=== PATIENT | male | born 1955 | race Caucasian/White ===

== ENCOUNTER 2017-10-12 18:00 | Emergency (ER) | payer OTHER ==
[2017-10-12 18:54] LABS: Glucose, Urine (Dipstick) Negative (Negative); Ketone, Urine Negative (Negative); Protein, Urine (Dipstick) 100 mg/dL (Neg-Trace)
[2017-10-12 19:01] LABS: Bilirubin Unable to Interpret (Negative); Blood, Urine Large (Negative); Nitrite Unable to Interpret (Negative)
[2017-10-12 19:03] LABS: #Eosinphils 0.5 thou/uL (0.0-0.7); #Lymphocytes 2.9 thou/uL (1.20-3.40); #Monocytes 0.8 thou/uL (0.11-0.59); #Neutrophils 4.7 thou/uL (1.40-6.50); %Basophils 0.4 % (0.0-1.0); %Eosinophils 5.5 % (0.0-10.0); %Lymphocytes 32.2 % (21.0-51.0); %Monocytes 9.3 % (0.0-10.0); Hematocrit 45.9 % (42.0-52.0); Mean Platelet Volume 6.7 fL (7.4-10.4); Red Blood Cell (RBC) Count 4.61 mill/uL (4.70-6.10); White Blood Cell (WBC) Count 8.9 thou/uL (4.8-10.8)
[2017-10-12 19:04] LABS: RBC/HPF GREATER THAN 50-TNTC HPF (0-3)
[2017-10-12 19:05] LABS: Bacteria/HPF None Seen HPF (None Seen); Hyaline Casts/LPF NONE SEEN LPF (0-3 Hyaline); Squamous Epithelial None Seen HPF (0-3)
[2017-10-12 19:27] LABS: ALT (SGPT) 21 U/L (8-55); AST (SGOT) 22 U/L (5-34); Alkaline Phosphatase 44 U/L (40-150); Anion Gap 9 mmol/L (10-20); BUN (Urea Nitrogen) 14 mg/dL (8.4-25.7); Calc. Creatinine Clearance 0 mL/min (70-130); Calcium 9.5 mg/dL (7.8-10.44); Carbon Dioxide 29 mmol/L (22-29); Chloride 103 mmol/L (98-107); Estimated GFR-MDRD 58; Globulin 3.4 g/dL (2.4-3.5); Protein, Total 7.7 g/dL (6.0-8.3)
== END 2017-10-12 21:51 | disposition home or self-care (01) ==
LOC: ERS 18:00
DX: N39.0 Urinary tract infection, site not specified (principal); E78.5 Hyperlipidemia, unspecified; I25.10 Atherosclerotic heart disease of native coronary artery without angina pectoris; I10 Essential (primary) hypertension; F41.9 Anxiety disorder, unspecified; F32.9 Major depressive disorder, single episode, unspecified; Z79.82 Long term (current) use of aspirin; Z79.899 Other long term (current) drug therapy
CPT/HCPCS: 36415; 80053; 81003; 81015; 85025; 99283

== ENCOUNTER 2017-10-23 13:35 | Emergency (ER) | payer OTHER ==
[2017-10-23] MEDS ORDERED: Acetaminophen 500 MG TAB ONE (15:23)
== END 2017-10-23 15:21 | disposition home or self-care (01) ==
LOC: ERS 13:35
DX: J11.1 Influenza due to unidentified influenza virus with other respiratory manifestations (principal); I25.10 Atherosclerotic heart disease of native coronary artery without angina pectoris; I10 Essential (primary) hypertension; E78.5 Hyperlipidemia, unspecified; F41.9 Anxiety disorder, unspecified; F32.9 Major depressive disorder, single episode, unspecified; Z79.82 Long term (current) use of aspirin; Z79.899 Other long term (current) drug therapy
CPT/HCPCS: 99283

== ENCOUNTER 2018-05-20 09:18 | Observation (INO) | payer BC ==
[2018-05-20 10:00] LABS: #Basophils 0.1 thou/uL (0.0-0.2); #Eosinphils 0.3 thou/uL (0.0-0.7); #Lymphocytes 1.6 thou/uL (1.20-3.40); #Monocytes 0.5 thou/uL (0.11-0.59); #Neutrophils 4.3 thou/uL (1.40-6.50); %Basophils 0.7 % (0.0-1.0); %Eosinophils 4.6 % (0.0-10.0); %Lymphocytes 24.2 % (21.0-51.0); %Monocytes 7.2 % (0.0-10.0); %Neutrophils 63.3 % (42.0-75.0); Hemoglobin 16.3 g/dL (14.0-18.0); Mean Corpuscular HGB CONC 34.6 g/dL (32.0-36.0); Mean Corpuscular Hemoglobin 32.9 pg (27.0-31.0); Mean Corpuscular Volume 95.1 fL (78.0-98.0); Mean Platelet Volume 7.1 fL (7.4-10.4); Platelet Count 228 thou/uL (130-400); RBC Distribution Width 11.8 % (11.5-14.5); Red Blood Cell (RBC) Count 4.95 mill/uL (4.70-6.10); White Blood Cell (WBC) Count 6.8 thou/uL (4.8-10.8)
--- NOTE | 2018-05-20 10:23 | RAD ---
CHEST 1 VIEW: HISTORY: Chest pain and shortness of breath. COMPARISON: Chest radiograph 06/19/17. FINDINGS: Heart size is enlarged. Tendon suturing is present of the right humeral head. No acute osseous abno rmality. IMPRESSION: No acute intrathoracic abnormality. POS: [facility]
[2018-05-20 10:27] LABS: ALT (SGPT) 20 U/L (8-55); AST (SGOT) 18 U/L (5-34); Albumin 4.2 g/dL (3.5-5.0); Alkaline Phosphatase 57 U/L (40-150); Anion Gap 13 mmol/L (10-20); BUN (Urea Nitrogen) 14 mg/dL (8.4-25.7); Bilirubin, Total 0.7 mg/dL (0.2-1.2); CK (CPK) 72 U/L (30-200); Calc. Creatinine Clearance 0 mL/min (70-130); Calcium 8.8 mg/dL (7.8-10.44); Carbon Dioxide 25 mmol/L (22-29); Chloride 105 mmol/L (98-107); Estimated GFR-MDRD 59; Globulin 2.9 g/dL (2.4-3.5); Glucose 166 mg/dL (70-105); Lipase 356 U/L (8-78); Potassium 4.5 mmol/L (3.5-5.1); Protein, Total 7.1 g/dL (6.0-8.3); Sodium 138 mmol/L (136-145)
[2018-05-20 10:31] LABS: CKMB 1.1 ng/mL (0-6.6); Troponin I Less than 0.010 ng/mL (< 0.028)
[2018-05-20] MEDS ORDERED: Nitroglycerin 50 MG/250 ML BOT 0 ML ONE ×2 (11:16→11:17)
[2018-05-20] MEDS ORDERED: Nitroglycerin 2% Ointment 1 INCH/1 GM Packet ONE (11:19)
--- NOTE | 2018-05-20 11:33 | CT ---
CTA OF THE CHEST AND ABDOMEN UTILIZING AORTIC DISSECTION PROTOCOL AND 3D REFORMATTED IMAGING: INDICATION: History of chest pain. FINDINGS: No definite acute aortic stenosis, occlusion, or aneurysmal formation is seen involving the thoracic or abdominal aorta. There are mild scattered vascular calcifications involving the aorta. There is postsurgical change of a prior CABG. The splenic artery and common hepatic arteries have separate origins from the proximal aorta which is a normal variant. The left gastric artery appears to have its origin from the splenic artery. The SMA is widely patent. There is a small duplicated right renal artery. There is a single left renal artery. The renal arteries appear patent. The FORTINO is patent. There is a circumaortic left renal ve in. No confluent airspace opacity, pleural effusion, or pneumothorax is evident. There is mild scattered emphysema. No enlarged lymph nodes are evident. There is fatty infiltration of the liver. The adrenal glands, pancreas, and spleen are normal appearing. There is some cortical irregularity involving the left kidney which may reflect sequelae of prior inf ection or trauma. There is a normal retrocecal appendix. The bladder is moderately prominent. There is some wall thic kening involving the left superolateral aspect of the bladder dome which is nonspecific. This is bes t seen on image 180 of series 2. No definite acute osseous abnormality is evident. There is scattered degenerative and osteoarthritic change. IMPRESSION: 1. No acute aortic stenosis, occlusion, or aneurysmal formation demonstrated. 2. Fatty infiltration of the liver. 3. Cortical irregularity of left kidney may reflect sequela of prior trauma or infection. 4. Focal area of wall thickening involving the left superolateral aspect of the bladder dome. This can be seen with focal infectious, inflammatory or malignant etiologies of the bladder. Recommend co rrelation. The bladder does appear to be moderately dilated. Would recommend correlation with clini lacey exam. The patient may be experiencing bladder outlet obstruction. Followup urology consultation may be helpful to exclude the presence of a bladder lesion. POS: [facility]
[2018-05-20 13:04] LABS: Bilirubin Negative (Negative); Blood, Urine Negative (Negative); Clarity CLEAR (Clear); Glucose, Urine (Dipstick) Negative (Negative); Leukocyte Negative (Negative); Nitrite Negative (Negative); Protein, Urine (Dipstick) Negative (Neg-Trace); Specific Gravity, Urine 1.027 (1.002-1.036); Urobilinogen 0.2 mg/dL (0.2-1.0); pH, Urine 7.5 (5.0-9.0)
[2018-05-20] MEDS ORDERED: Ondansetron ODT 4 MG TAB SL PRN (13:13)
[2018-05-20] MEDS ORDERED: Ondansetron HCl/PF 4 MG/2 ML Vial IVP PRN ×2 (13:13→17:01)
[2018-05-20 13:33] VITALS: BMI 28.4
[2018-05-20] MEDS: Sodium Chloride 0.9% 1,000 ML IV SCH ×2 (13:46→22:09)
[2018-05-20 14:38] LABS: Troponin I Less than 0.010 ng/mL (< 0.028)
[2018-05-20] MEDS ORDERED: ISOVUE-370 76%-LOCM 1 ML ONE (14:39)
[2018-05-20] MEDS ORDERED: Clopidogrel Bisulfate 300 MG TAB PO SCH (16:15)
[2018-05-20] MEDS ORDERED: Senokot 8.6 MG TAB PO PRN (17:01)
[2018-05-20] MEDS ORDERED: Ondansetron ODT 4 MG TAB PO PRN (17:01)
[2018-05-20] MEDS ORDERED: Mag-Al 1200 mg/1200 mg/30 ML UDCUP PO PRN (17:01)
[2018-05-20] MEDS ORDERED: Nitroglycerin 0.4 MG TAB (25 Tab Bottle) PO PRN (17:01)
[2018-05-20] MEDS ORDERED: Calcium Carbonate 500 MG ChewTAB PO PRN (17:01)
[2018-05-20 17:04] LABS: Troponin I Less than 0.010 ng/mL (< 0.028)
[2018-05-20] MEDS: Acetaminophen 325 MG TAB PO PRN ×2 (17:43→22:05)
--- NOTE | 2018-05-20 18:34 | HP ---
PRIMARY CARE PHYSICIAN: Juan Boogie D.O. PRIMARY RECOATER: Alex Kyle M.D. CHIEF COMPLAINT: Chest discomfort. HISTORY OF PRESENT ILLNESS: Patient is a 62-year-old white male with coronary artery disease, status post CABG and stent placement, who presented to the emergency room with chest discomfort. Two drug-eluting stents were placed on , by Dr. Kyle. He was advised to continue dual antiplatelet therapy. However, over the last 3 months, patient has not taken any medications including aspirin. Over the last 2-3 days, the patient has on and off chest discomfort associated with shortness of breath. Chest discomfort is substernal in nature and radiating to his back and left arm. He feels like someone is sitting on his chest. He had mild palpitations without any syncope, lightheadedness or diaphoresis. He denies recent immobilization or travel. No heartburn, dyspepsia reported. In the emergency room, EKG showed sinus rhythm without significant ST-T wave changes. His chest x-ray was negative for infiltrate. A CT dissection protocol was negative, except for some focal area of wall thickening involving the bladder. He received aspirin and nitropatch in the emergency room. PAST MEDICAL HISTORY: 1. Coronary artery disease, status post CABG in 2005. 2. Drug-eluting stent placement in 05/2017. 3. Hyperlipidemia. 4. Depression 5. Medical noncompliance. PAST SURGICAL HISTORY: 1. Coronary artery bypass grafting. 2. Lumbar laminectomy. 3. Achilles tendon rupture repair. 4. Right triceps tendon repair. ALLERGIES: The patient is allergic to HYDROCODONE. FAMILY HISTORY: Negative for heart disease in his family. SOCIAL HISTORY: He currently lives at home with his girlfriend. No alcohol, tobacco or drug use. CURRENT HOME MEDICATIONS: The patient does not take any home medications. REVIEW OF SYSTEMS: The following complete review of systems was negative, unless otherwise mentioned in the HPI or below: Constitutional: Weight loss or gain, ability to conduct usual activities. Skin: Rash, itching. Eyes: Double vision, pain. ENT/Mouth: Nose bleeding, neck stiffness, pain, tenderness. Cardiovascular: Palpitations, dyspnea on exertion, orthopnea. Respiratory: Shortness of breath, wheezing, cough, hemoptysis, fever or night sweats. Gastrointestinal: Poor appetite, abdominal pain, heartburn, nausea, vomiting, constipation, or diarrhea. Genitourinary: Urgency, frequency, dysuria, nocturia. Musculoskeletal: Pain, swelling. Neurologic/Psychiatric: Anxiety, depression. Allergy/Immunologic: Skin rash, bleeding tendency. PHYSICAL EXAMINATION: VITAL SIGNS: In the emergency room showed temperature 97.6, respirations 16, pulse rate of 93, blood pressure of 181/89 with O2 saturation 98% on room air. GENERAL: A 62-year-old male in no apparent distress. Denies any chest discomfort at this time. HEENT: Head atraumatic, normocephalic. Sclerae are anicteric. Moist mucous membrane, no oral lesion. NECK: Supple, no JVD appreciated. No carotid bruit. LUNGS: Clear to auscultation bilaterally, no wheezing, rales or rhonchi. HEART: S1, S2 present. Regular rate and rhythm. Healed midline scar from previous CABG. No rubs or gallops appreciated. ABDOMEN: Soft, nontender, bowel sounds present. EXTREMITIES: No edema or calf tenderness. NEUROLOGIC: Grossly nonfocal, moves all four extremities. PSYCHIATRY: Alert, awake, oriented x3. SKIN: Warm and dry. LYMPH NODES: No palpable lymph nodes in the neck. PERIPHERAL VASCULAR: Radial pulses palpable bilaterally. MUSCULOSKELETAL: No joint swelling or tenderness. LABORATORY AND X-RAY FINDINGS: Lipase was 356. Troponin negative. BNP 55.1. CBC showed WBC 6.8 with hemoglobin 16.3, hematocrit 47.1. Chemistries showed sodium 138, potassium 4.5, chloride 105, bicarbonate 25, BUN 14, creatinine 1.24. Chest x-ray by my review as discussed above. EKG by my review as discussed above. IMPRESSION: 1. Chest discomfort. 2. Coronary artery disease, status post coronary artery bypass graft with stent placement. Please note that patient does not take any medications at home. 3. Hypertension. 4. Hyperlipidemia. 5. Medication noncompliance. 6. Depression. 7. Chronic kidney disease stage 3. 8. Bladder wall thickening on the CT dissection protocol. PLAN: The patient will be monitored on the telemetry unit. I discussed the case with Dr. Alex Kyle over the phone. Dr. Kyle recommended 600 mg Plavix. We will start him on low dose aspirin and 75 mg Plavix tomorrow. We will hold beta linda due to sinus bradycardia with heart rate in 40s. We will add low dose ARLIN inhibitor. Resume statins. Continue telemetry monitoring. Serial troponins. Outpatient followup for bladder wall thickening. Plan of care was discussed with the patient in detail. He stated understanding. MALIKAD
[2018-05-20] MEDS: Rosuvastatin 10 MG TAB PO SCH (20:16)
[2018-05-21] MEDS: Clopidogrel Bisulfate 75 MG TAB PO SCH (08:59)
[2018-05-21] MEDS: Aspirin 81 mg Enteric Coated Tablet PO SCH (08:59)
[2018-05-21] MEDS ORDERED: Lisinopril 2.5 MG TAB PO SCH (09:00)
[2018-05-21] MEDS: Sodium Chloride 0.9% 1,000 ML IV SCH ×2 (10:19→20:43)
[2018-05-21 16:26] LABS: Hemoglobin 16.4 g/dL (14.0-18.0)
[2018-05-21] MEDS: Acetaminophen 325 MG TAB PO PRN (18:29)
[2018-05-21] MEDS ORDERED: hydrALAZINE 20 MG/ML VIAL SLOW IVP PRN (19:30)
--- NOTE | 2018-05-21 19:38 | PDOC.PN ---
- Subjective Encounter Start Date: 05/21/18 Encounter Start Time: 09:30 Patient seen and examined for CP. Gross hematuria + with some suprapubic cramping. No other complaints. No overnight events - Objective Resuscitation Status: Resuscitation Status FULL:Full Resuscitation MAR Reviewed: Yes Vital Signs & Weight: Vital Signs (12 hours) Temp Pulse Resp BP BP Pulse Ox 05/21/18 15:20 98.9 F 54 L 16 150/83 H 96 05/21/18 11:46 98.7 F 56 L 20 151/75 H 97 05/21/18 08:00 97.8 F 49 L 12 05/21/18 07:49 97.8 F 52 L 20 172/93 H 96 Weight Weight 176 lb I&O: 05/20/18 05/21/18 05/22/18 06:59 06:59 06:59 Intake Total 3050 1814 Output Total 550 1250 Balance 2500 564 Result Diagrams: 05/21/18 16:17 05/20/18 09:50 EKG Reviewed by me: Yes (Tele SR) Phys Exam - Physical Examination Constitutional: NAD Neck: no JVD Respiratory: no wheezing, no rales, no rhonchi, clear to auscultation bilateral Cardiovascular: RRR, no rub no heaves/pulsations Gastrointestinal: soft, non-tender, no distention, positive bowel sounds Musculoskeletal: no edema, pulses present Neurological: non-focal, normal sensation, moves all 4 limbs Psychiatric: normal affect, A&O x 3 Dx/Plan - Plan DVT proph w/SCDs IMPRESSION: 1. Chest discomfort with h/o CAD, status post CABG & stent placement. 2. Gross hematuria - new problem 3. Hypertension. 4. Hyperlipidemia. 5. Medication noncompliance. 6. Depression. 7. Chronic kidney disease stage 3. 8. Bladder wall thickening on the CT dissection protocol. PLAN: Hematuria probably due to loading dose of Plavix with Aspirin. Please note that patient was not taking any antiplatelet agent at home. We will monitor hemoglobin closely. Will start him on IV fluids. Will increase lisinopril dose. Continue aspirin and Plavix. Repeat Hb later today and in AM. Was extensively count to be compliant with all of his medications. He was advised to follow Urology as outpatient for bladder wall thickening will continue statins. Serial urine collection. Review of Systems - Review of Systems Respiratory: negative: Cough, Dry, Shortness of Breath, Hemoptysis, SOB with Excertion, Pleuritic Pain, Sputum, Wheezing Cardiovascular: negative: chest pain, palpitations, orthopnea, paroxysmal nocturnal dyspnea, edema, light headedness, other - Medications/Allergies Allergies/Adverse Reactions: Allergies Allergy/AdvReac Type Severity Reaction Status Date / Time hydrocodone Allergy Verified 06/07/17 23:58 Medications: Current Medications Acetaminophen (Tylenol) 650 mg PO Q4H PRN PRN Reason: Headache/Fever or Pain Last Admin: 05/21/18 18:29 Dose: 650 mg Al Hydroxide/Mg Hydroxide (Maalox) 30 ml PO Q6H PRN PRN Reason: Heartburn or Indigestion Amlodipine Besylate (Norvasc) 5 mg PO ONE [facility] Aspirin (Ecotrin) 81 mg PO DAILY [facility] Last Admin: 05/21/18 08:59 Dose: 81 mg Calcium Carbonate (Tums) 1,000 mg PO Q4H PRN PRN Reason: Heartburn or Indigestion Clopidogrel Bisulfate (Plavix) 75 mg PO DAILY [facility] Last Admin: 05/21/18 08:59 Dose: 75 mg Hydralazine HCl (Apresoline) 10 mg SLOW IVP Q4H PRN PRN Reason: SBP Greater Than 180 Sodium Chloride (Normal Saline 0.9%) 1,000 mls @ 100 mls/hr IV .Q10H [facility] Last Admin: 05/21/18 10:19 Dose: 1,000 mls Lisinopril (Zestril) 5 mg PO BID [facility] Nitroglycerin (Nitrostat) 0.4 mg PO Q5MIN PRN PRN Reason: Chest Pain Ondansetron HCl (Zofran Odt) 4 mg PO Q6H PRN PRN Reason: Nausea/Vomiting Ondansetron HCl (Zofran) 4 mg IVP Q6H PRN PRN Reason: Nausea/Vomiting Rosuvastatin Calcium (Crestor) 10 mg PO HS [facility] Last Admin: 05/20/18 20:16 Dose: 10 mg Senna (Senokot) 2 tab PO HSPRN PRN PRN Reason: Constipation
[2018-05-21] MEDS ORDERED: Amlodipine 5 MG TAB PO SCH (19:45)
[2018-05-21] MEDS: Rosuvastatin 10 MG TAB PO SCH (20:42)
[2018-05-21] MEDS: Lisinopril 5 MG TAB PO SCH (20:42)
[2018-05-21] MEDS ORDERED: Ibuprofen 200 MG TAB PO SCH (23:15)
[2018-05-22 04:59] LABS: Hemoglobin 15.2 g/dL (14.0-18.0)
[2018-05-22] MEDS: Sodium Chloride 0.9% 1,000 ML IV SCH (07:08)
[2018-05-22] MEDS ORDERED: hydrOXYzine 10 MG/5 ML UDCUP PO PRN (08:49)
[2018-05-22] MEDS: Aspirin 81 mg Enteric Coated Tablet PO SCH (08:51)
[2018-05-22] MEDS: Lisinopril 5 MG TAB PO SCH (08:51)
[2018-05-22] MEDS: Clopidogrel Bisulfate 75 MG TAB PO SCH (08:51)
[2018-05-22 16:08] VITALS: BP 126/72; TEMP 98.1
--- NOTE | 2018-05-22 16:48 | PDOC.PN ---
- Subjective Encounter Start Date: 05/22/18 Encounter Start Time: 16:47 Subjective: no Chest pain/SOB. -: feels much better -: no more blood in urine - Objective Resuscitation Status: Resuscitation Status FULL:Full Resuscitation MAR Reviewed: Yes Vital Signs & Weight: Vital Signs (12 hours) Temp Pulse Resp BP BP Pulse Ox 05/22/18 16:00 98.1 F 53 L 14 126/72 97 05/22/18 11:29 97.9 F 52 L 16 141/68 H 92 L 05/22/18 09:53 122/59 L 05/22/18 08:00 98.0 F 50 L 20 05/22/18 07:51 98.0 F 50 L 20 119/64 95 Weight Weight 176 lb I&O: 05/21/18 05/22/18 05/23/18 06:59 06:59 06:59 Intake Total 3050 3254 Output Total 550 2500 550 Balance 2500 754 -550 Result Diagrams: 05/22/18 04:20 05/20/18 09:50 Additional Labs: Laboratory Tests 05/20/18 05/20/18 05/20/18 09:50 13:59 16:34 Troponin I Less than 0.010 Less than 0.010 Less than 0.010 labs reviewed Phys Exam - Physical Examination Constitutional: NAD HEENT: PERRLA, moist MMs, sclera anicteric, oral pharynx no lesions Neck: no nodes, no JVD, supple, full ROM Respiratory: no wheezing, no rales, no rhonchi, clear to auscultation bilateral Cardiovascular: RRR, no significant murmur, no rub Gastrointestinal: soft, non-tender, no distention, positive bowel sounds Musculoskeletal: no edema, pulses present Neurological: non-focal, normal sensation, moves all 4 limbs Psychiatric: normal affect, A&O x 3 Skin: no rash Dx/Plan (1) Hematuria Code(s): R31.9 - HEMATURIA, UNSPECIFIED Status: Acute (2) Chest pain Code(s): R07.9 - CHEST PAIN, UNSPECIFIED Status: Acute (3) CAD (coronary artery disease) Code(s): I25.10 - ATHSCL HEART DISEASE OF [place] CORONARY ARTERY W/O ANG PCTRS Status: Acute Qualifiers: Coronary Disease-Associated Artery/Lesion type: bypass graft [place] vs. transplanted heart: [place] heart Associated angina: with stable angina Qualified Code(s): I25.708 - Atherosclerosis of coronary artery bypass graft(s) , unspecified, with other forms of angina pectoris (4) Depression Code(s): F32.9 - MAJOR DEPRESSIVE DISORDER, SINGLE EPISODE, UNSPECIFIED Status : Chronic Qualifiers: Depression Type: unspecified (5) HLD (hyperlipidemia) Code(s): E78.5 - HYPERLIPIDEMIA, UNSPECIFIED Status: Chronic Qualifiers: Hyperlipidemia type: unspecified (6) HTN (hypertension) Code(s): I10 - ESSENTIAL (PRIMARY) HYPERTENSION Status: Chronic Qualifiers: Hypertension type: essential hypertension - Plan DC IVF.cont ASA,plavix and ARLIN-I -: HR on lower side so holding off on BB -: will check ECHO to assess cardiac Function as pt was off of meds -: if low, add diurtics,BB & OP cardiology referral. -: If NL, DC home w OP f/u. * . Review of Systems - Review of Systems Constitutional: negative: fever, chills, sweats, weakness, malaise, other ENT: negative: Ear Pain, Ear Discharge, Nose Pain, Nose Discharge, Nose Congestion, Mouth Pain, Mouth Swelling, Throat Pain, Throat Swelling, Other Respiratory: negative: Cough, Dry, Shortness of Breath, Hemoptysis, SOB with Excertion, Pleuritic Pain, Sputum, Wheezing Cardiovascular: negative: chest pain, palpitations, orthopnea, paroxysmal nocturnal dyspnea, edema, light headedness, other Gastrointestinal: negative: Nausea, Vomiting, Abdominal Pain, Diarrhea, Constipation, Melena, Hematochezia, Other Genitourinary: negative: Dysuria, Frequency, Incontinence, Hematuria, Retention , Other Musculoskeletal: negative: Neck Pain, Shoulder Pain, Arm Pain, Back Pain, Hand Pain, Leg Pain, Foot Pain, Other Neurological: negative: Weakness, Numbness, Incoordination, Change in Speech, Confusion, Seizures, Other - Medications/Allergies Allergies/Adverse Reactions: Allergies Allergy/AdvReac Type Severity Reaction Status Date / Time hydrocodone Allergy Verified 06/07/17 23:58 Medications: Current Medications Acetaminophen (Tylenol) 650 mg PO Q4H PRN PRN Reason: Headache/Fever or Pain Last Admin: 05/21/18 18:29 Dose: 650 mg Al Hydroxide/Mg Hydroxide (Maalox) 30 ml PO Q6H PRN PRN Reason: Heartburn or Indigestion Aspirin (Ecotrin) 81 mg PO DAILY [facility] Last Admin: 05/22/18 08:51 Dose: 81 mg Calcium Carbonate (Tums) 1,000 mg PO Q4H PRN PRN Reason: Heartburn or Indigestion Clopidogrel Bisulfate (Plavix) 75 mg PO DAILY [facility] Last Admin: 05/22/18 08:51 Dose: 75 mg Hydralazine HCl (Apresoline) 10 mg SLOW IVP Q4H PRN PRN Reason: SBP Greater Than 180 Hydroxyzine HCl (Atarax Syrup 10 Mg/5ml) 50 mg PO QIDPRN PRN PRN Reason: Itching Lisinopril (Zestril) 5 mg PO BID [facility] Last Admin: 05/22/18 08:51 Dose: 5 mg Nitroglycerin (Nitrostat) 0.4 mg PO Q5MIN PRN PRN Reason: Chest Pain Ondansetron HCl (Zofran Odt) 4 mg PO Q6H PRN PRN Reason: Nausea/Vomiting Ondansetron HCl (Zofran) 4 mg IVP Q6H PRN PRN Reason: Nausea/Vomiting Rosuvastatin Calcium (Crestor) 10 mg PO HS [facility] Last Admin: 05/21/18 20:42 Dose: 10 mg Senna (Senokot) 2 tab PO HSPRN PRN PRN Reason: Constipation
--- NOTE | 2018-05-23 13:22 | DIS ---
DATE OF ADMISSION: 05/20/2018 DATE OF DISCHARGE: 05/22/2018 CONDITION AT THE TIME OF DISCHARGE: Stable and improved. PRIMARY CARE PHYSICIAN: Dr. Juan Boogie. PRIMARY ALUMINUM WELDER: Dr. Alex Kyle. DISCHARGE MEDICATIONS: Aspirin 81 mg daily, Plavix 75 mg daily, lisinopril 5 mg p.o. b.i.d., subling ual nitroglycerin 0.4 mg p.o. every minutes p.r.n. chest pain, pravastatin 20 mg at bedtime. DISCHARGE DIAGNOSES: 1. Chest pain, acute coronary syndrome ruled out, likely noncardiac. 2. Hematuria secondary to antiplatelet therapy, resolved. 3. Coronary artery disease. 4. Depression. 5. Hypertension. 6. Dyslipidemia. PROCEDURES DONE IN THE HOSPITAL: CT scan with aortic dissection protocol, which is negative for same . There is no aortic stenosis, occlusion, or aneurysm. Fatty infiltration of the liver is seen and focal area of wall thickening involving the left superolateral aspect of the bladder dome was seen. HOSPITAL COURSE: Mr. Bales is a 62-year-old male with known history of coronary artery disease s tatus post CABG and stent placement, who presented to the emergency room with complaints of chest dis comfort. Two drug-eluting stents were placed on 06/11/[address] Kyle and he was discharged on dual antiplatelet therapy. However, over the last 3 months, the patient has not taken any medication s including aspirin. He presented with 2-3 days complaints of chest pain. EKG showed normal sinus r hythm without any significant ST and T-wave changes. Chest x-ray was negative for infiltrate. A CT dissection protocol was negative except for some focal area of wall thickening involving the bladder. He was admitted under observation status for further evaluation. Admitting physician, Dr. Aravind liang scussed the case with Dr. Kyle who recommended loading dose of Plavix and then 75 mg Plavix with aspirin daily. This was started. Beta blockers were held due to bradycardia with heart rate in the 40s. Low dose ARLIN inhibitor were restarted as well. Stains were resumed as well. Serial cardiac enzymes were trended and were negative. The patient had evidence of hematuria as soon as he was started with a loading dose of Plavix and aspirin. He was started on IV fluids and monito red. H&H was serially done and was stable. His hematuria resolved overnight and he was asymptomatic . Because of him being off of his medications, an echocardiogram was done, but the results are pendi ng at this time. He is instructed to follow up with Dr. Kyle as an outpatient for the results of the echocardiogram and be compliant with his medications. He is instructed to follow up with a [facility] physician as well. The patient reported that now he has insurance and will be able to afford the medications and his barbara ointments. Once again medication compliance was emphasized. He was seen and examined prior to discharge. Please see hospitalist progress note from the date of d ischarge for further detail including [id number] interview.
--- NOTE | 2018-05-25 11:55 | EKG ---
Test Reason : ER Blood Pressure : / mmHG Vent. Rate : 067 BPM Atrial Rate : 067 BPM P-R Int : 186 ms QRS Dur : 088 ms QT Int : 428 ms P-R-T Axes : 078 063 099 degrees QTc Int : 452 ms Normal sinus rhythm Possible Left atrial enlargement Borderline ECG Confirmed by PEDRO BARNHART ([id number]), art editor SIMRAN RAYGOZA ([id number]) on 05/25/2018 11:55:41 AM Referred By: Confirmed By:PEDRO BARNHART
== END 2018-05-22 18:11 | disposition home or self-care (01) ==
LOC: ERS 09:18 → 2SW 11:30
PROVIDERS: ADMIT Internal Medicine; ATTEND Internal Medicine
DX: R07.89 Other chest pain (principal); I25.10 Atherosclerotic heart disease of native coronary artery without angina pectoris; F32.9 Major depressive disorder, single episode, unspecified; E78.5 Hyperlipidemia, unspecified; R31.0 Gross hematuria; I12.9 Hypertensive chronic kidney disease with stage 1 through stage 4 chronic kidney disease, or unspecified chronic kidney disease; N18.3 Chronic kidney disease, stage 3 (moderate); Z91.19 Patient's noncompliance with other medical treatment and regimen; Z88.8 Allergy status to other drugs, medicaments and biological substances
CPT/HCPCS: 36415; 71045; 71275; 80053; 81003; 82550; 82553; 83690; 83880; 84484; 85014; 85018; 85025; 93005; 93306; 96360; 96361; G0378

== ENCOUNTER 2019-03-18 13:37 | Outpatient (CLI) | payer BC ==
--- NOTE | 2019-03-19 15:53 | ULT ---
LOWER EXTREMITY ARTERIAL EVALUATION USING DOPPLER WAVEFORM ANALYSIS AND SEGMENTAL LIMB PRESSURES 03/18/19 Examination of the legs reveal normal Doppler waveforms at rest in both legs with an ankle-arm index of about 1.2 bilaterally. Toe-brachial index is also normal. This study is a normal resting arterial study and would not be consistent with any significant vascular claudication.
== END 2019-03-18 13:38 | disposition home or self-care (01) ==
LOC: ULT 13:37
PROVIDERS: ATTEND Family Medicine
DX: G25.81 Restless legs syndrome (principal); G47.62 Sleep related leg cramps
CPT/HCPCS: 93922

== ENCOUNTER 2019-08-15 08:24 | Outpatient (CLI) | payer BC ==
--- NOTE | 2019-08-15 11:24 | CT ---
CT ABDOMEN AND PELVIS WITH IV CONTRAST: DATE: 08/15/2019. PROVIDED CLINICAL HISTORY: Gastroenteritis. FINDINGS: The visualized lung bases are free of significant opacity. The liver, spleen, pancreas, kidneys, and adrenal glands demonstrate an unremarkable CT appearance wi th the exception of foci of renal parenchymal volume loss on the left likely reflecting sequelae of p rior insult. There is no bowel dilatation, inflammatory fat stranding, free fluid, or lymph node enlargement appar ent. The appendix appears normal. Scattered atherosclerotic vascular calcifications seen. The osseous structures demonstrate no concerning lytic or blastic lesions. Penile urethral stent mat erial is demonstrated. IMPRESSION: No evidence for an acute process. POS: [facility]
== END 2019-08-15 08:25 | disposition home or self-care (01) ==
LOC: CT 08:24
PROVIDERS: ATTEND Physician Assistant
DX: A09 Infectious gastroenteritis and colitis, unspecified (principal); R10.824 Left lower quadrant rebound abdominal tenderness
CPT/HCPCS: 74177; 82565

== ENCOUNTER 2020-01-01 19:20 | Emergency (ER) | payer BC ==
[2020-01-01] MEDS ORDERED: Aspirin Chewable 81 MG TAB ONE (20:04)
[2020-01-01] MEDS ORDERED: Nitroglycerin 2% Ointment 1 INCH/1 GM Packet ONE (20:04)
[2020-01-01 20:05] LABS: #Basophils 0.1 thou/uL (0.0-0.2); #Eosinphils 0.3 thou/uL (0.0-0.7); #Lymphocytes 3.2 thou/uL (1.20-3.40); #Monocytes 0.9 thou/uL (0.11-0.59); %Basophils 0.8 % (0.0-1.0); %Eosinophils 3.6 % (0.0-10.0); %Lymphocytes 37.6 % (21.0-51.0); %Neutrophils 47.1 % (42.0-75.0); Hemoglobin 17.5 g/dL (14.0-18.0); Mean Corpuscular HGB CONC 34.6 g/dL (32.0-36.0); Mean Corpuscular Hemoglobin 33.1 pg (27.0-31.0); Mean Corpuscular Volume 95.7 fL (78.0-98.0); Mean Platelet Volume 7.4 fL (7.4-10.4); Platelet Count 266 thou/uL (130-400); RBC Distribution Width 11.7 % (11.5-14.5); Red Blood Cell (RBC) Count 5.28 mill/uL (4.70-6.10); White Blood Cell (WBC) Count 8.6 thou/uL (4.8-10.8)
[2020-01-01] MEDS ORDERED: Morphine 4 MG/ML VIAL ONE (20:25)
[2020-01-01 20:34] LABS: ALT (SGPT) 22 U/L (8-55); AST (SGOT) 18 U/L (5-34); Albumin 4.9 g/dL (3.4-4.8); Alkaline Phosphatase 50 U/L (40-110); BUN (Urea Nitrogen) 19 mg/dL (8.4-25.7); Bilirubin, Total 0.9 mg/dL (0.2-1.2); Calc. Creatinine Clearance 0 mL/min (70-130); Calcium 10.1 mg/dL (7.8-10.44); Carbon Dioxide 30 mmol/L (23-31); Estimated GFR-MDRD 49; Globulin 3.4 g/dL (2.4-3.5); Glucose 74 mg/dL (80-115); Lipase 39 U/L (8-78); Protein, Total 8.3 g/dL (5.8-8.1)
--- NOTE | 2020-01-01 21:09 | RAD ---
EXAM: CHEST ONE VIEW: 01/01/20 HISTORY: Chest pain. Shortness of breath. COMPARISON: 05/20/18. FINDINGS/IMPRESSION: Heart size is within normal limits. The lungs are clear. No confluent pneumonia, overt edema, or pleu ral effusion. POS: [facility]
[2020-01-01 21:29] LABS: Anion Gap 16 mmol/L (10-20); Chloride 101 mmol/L (98-107); Potassium 4.3 mmol/L (3.5-5.1); Sodium 138 mmol/L (136-145)
--- NOTE | 2020-01-03 13:44 | EKG ---
Test Reason : CHEST PAIN Blood Pressure : / mmHG Vent. Rate : 065 BPM Atrial Rate : 065 BPM P-R Int : 178 ms QRS Dur : 098 ms QT Int : 396 ms P-R-T Axes : 046 050 080 degrees QTc Int : 411 ms Normal sinus rhythm Normal ECG Confirmed by MARLO LOGAN ([id number]), photographic editor SIMRAN RAYGOZA ([id number]) on 01/03/2020 1:43:58 PM Referred By: Confirmed By:MARLO Moreno
== END 2020-01-01 21:57 | disposition left against medical advice (07) ==
LOC: ERS 19:20
DX: I25.118 Atherosclerotic heart disease of native coronary artery with other forms of angina pectoris (principal); E78.5 Hyperlipidemia, unspecified; E78.00 Pure hypercholesterolemia, unspecified; I10 Essential (primary) hypertension; F41.9 Anxiety disorder, unspecified; F32.9 Major depressive disorder, single episode, unspecified; Z79.899 Other long term (current) drug therapy; Z79.82 Long term (current) use of aspirin
CPT/HCPCS: 36415; 71045; 80053; 83690; 84484; 85025; 93005; 96374; J2270

== ENCOUNTER 2020-04-13 07:29 | Emergency (ER) | payer BC, OTHER ==
--- NOTE | 2020-04-13 08:58 | RAD ---
CHEST 1 VIEW: HISTORY: Cough. COMPARISON: Radiograph 01/01/2020. FINDINGS: Lungs are mildly hypoinflated, although without confluent airspace consolidation, pneumothorax, or ef fusion. Multiple midline sternotomy wires. No acute osseous abnormality. IMPRESSION: No acute intrathoracic abnormality. POS: [facility]
[2020-04-14 12:45] LABS: SARS-CoV-2 MS2 Positive; SARS-CoV-2 N Gene Negative; SARS-CoV-2 S Gene Negative; SARS-CoV-2 orf1ab Negative
== END 2020-04-13 09:25 | disposition home or self-care (01) ==
LOC: ERS 07:29
DX: R50.9 Fever, unspecified (principal); R51 Headache; R05 Cough; Z20.828 Contact with and (suspected) exposure to other viral communicable diseases; E78.5 Hyperlipidemia, unspecified; E78.00 Pure hypercholesterolemia, unspecified; I25.10 Atherosclerotic heart disease of native coronary artery without angina pectoris; I10 Essential (primary) hypertension; F41.9 Anxiety disorder, unspecified; F32.9 Major depressive disorder, single episode, unspecified; Z79.82 Long term (current) use of aspirin; Z79.899 Other long term (current) drug therapy
CPT/HCPCS: 71045; 87081; 87430; 87635; 87804; 99283; U0003

== ENCOUNTER 2020-06-18 13:25 | Emergency (ER) | payer BC, OTHER ==
[2020-06-18 13:50] LABS: #Basophils 0.1 thou/uL (0.0-0.2); #Eosinphils 0.1 thou/uL (0.0-0.7); #Lymphocytes 2.2 thou/uL (1.20-3.40); #Monocytes 0.8 thou/uL (0.11-0.59); #Neutrophils 4.1 thou/uL (1.40-6.50); %Basophils 1.2 % (0.0-1.0); %Eosinophils 1.7 % (0.0-10.0); %Lymphocytes 30.1 % (21.0-51.0); %Monocytes 11.1 % (0.0-10.0); Hemoglobin 15.9 g/dL (14.0-18.0); Mean Corpuscular Hemoglobin 33.9 pg (27.0-31.0); Mean Corpuscular Volume 96.7 fL (78.0-98.0); Mean Platelet Volume 7.1 fL (7.4-10.4); Platelet Count 279 thou/uL (130-400); RBC Distribution Width 12.6 % (11.5-14.5); Red Blood Cell (RBC) Count 4.69 mill/uL (4.70-6.10); White Blood Cell (WBC) Count 7.3 thou/uL (4.8-10.8)
[2020-06-18] MEDS ORDERED: Nitroglycerin 0.4 MG TAB 1 EACH ONE (13:51)
[2020-06-18] MEDS ORDERED: Aspirin Chewable 81 MG TAB ONE (13:51)
--- NOTE | 2020-06-18 13:53 | RAD ---
EXAM: CHEST ONE VIEW HISTORY: Chest pain for 2 days. Headache. COMPARISON: 04/13/2020 FINDINGS: Postoperative changes likely due to prior CABG are again seen. Cardiac silhouette is magnified by pro jection. Pulmonary vasculature is within normal limits. The lungs remain clear. Postoperative changes each shoulder are seen. No interval change from prior study. IMPRESSION: No acute cardiopulmonary process.
[2020-06-18 14:07] LABS: ALT (SGPT) 30 U/L (8-55); AST (SGOT) 25 U/L (5-34); Albumin 4.7 g/dL (3.4-4.8); Alkaline Phosphatase 49 U/L (40-110); Anion Gap 14 mmol/L (10-20); BUN (Urea Nitrogen) 15 mg/dL (8.4-25.7); Bilirubin, Total 0.9 mg/dL (0.2-1.2); Calc. Creatinine Clearance 0 mL/min (70-130); Calcium 9.7 mg/dL (7.8-10.44); Carbon Dioxide 23 mmol/L (23-31); Chloride 105 mmol/L (98-107); Estimated GFR-MDRD 66; Globulin 3.3 g/dL (2.4-3.5); Glucose 67 mg/dL (80-115); Potassium 4.2 mmol/L (3.5-5.1); Sodium 138 mmol/L (136-145)
--- NOTE | 2020-06-26 15:33 | EKG ---
Test Reason : Blood Pressure : / mmHG Vent. Rate : 054 BPM Atrial Rate : 054 BPM P-R Int : 176 ms QRS Dur : 100 ms QT Int : 424 ms P-R-T Axes : 055 045 078 degrees QTc Int : 402 ms Sinus bradycardia Possible Left atrial enlargement Borderline ECG Confirmed by LUCIANO WHITT DO ([id number]), news copy editor SIMRAN RAYGOZA ([id number]) on 06/26/2020 3:33:05 PM Referred By: Confirmed By:LUCIANO WHITT DO
== END 2020-06-18 15:29 | disposition left against medical advice (07) ==
LOC: ERS 13:25
DX: R07.9 Chest pain, unspecified (principal); E78.5 Hyperlipidemia, unspecified; E78.00 Pure hypercholesterolemia, unspecified; I25.10 Atherosclerotic heart disease of native coronary artery without angina pectoris; I10 Essential (primary) hypertension; F41.9 Anxiety disorder, unspecified; F32.9 Major depressive disorder, single episode, unspecified; Z79.82 Long term (current) use of aspirin; Z79.899 Other long term (current) drug therapy
CPT/HCPCS: 71045; 80053; 84484; 85025; 93005

== ENCOUNTER 2021-07-08 08:41 | Outpatient (CLI) | payer BC | END 2021-07-08 08:42 | disposition home or self-care (01) | LOC: TBSIIMAG 08:41 | PROVIDERS: ATTEND Nurse Practitioner Family | DX: M25.562 Pain in left knee (principal); R60.0 Localized edema; S83.241A Other tear of medial meniscus, current injury, right knee, initial encounter; S83.281A Other tear of lateral meniscus, current injury, right knee, initial encounter ==

== ENCOUNTER 2021-12-20 12:26 | Emergency (ER) | payer BC ==
[~2021-12-20 12:26] MED LIST: Iopamidol 370 76% 100 ML VIAL ONE
[2021-12-20 13:51] LABS: Clarity Cloudy (Clear); Leukocyte Unable to Interpret Leu/uL (Negative); Nitrite Unable to Interpret (Negative); pH, Urine 6.7 (5.0-9.0)
[2021-12-20 13:52] LABS: Bilirubin Unable to Interpret (Negative); Blood, Urine Large (Negative); Glucose, Urine (Dipstick) Unable to Interpret mg/dL (Negative); Ketone, Urine Unable to Interpret mg/dL (Negative); Protein, Urine (Dipstick) Unable to Interpret mg/dL (Neg-Trace); Urobilinogen UNABLE TO INTERPRET mg/dL (Less than 2)
[2021-12-20 13:55] LABS: Bacteria/HPF Rare-Few HPF (None Seen); RBC/HPF Greater than 50 HPF (0-3); Squamous Epithelial 0-3 HPF (0-3)
[2021-12-20 15:52] LABS: #Eosinphils 0.4 thou/uL (0.0-0.7); #Lymphocytes 2.1 thou/uL (1.20-3.40); #Monocytes 0.9 thou/uL (0.11-0.59); #Neutrophils 3.9 thou/uL (1.40-6.50); %Basophils 0.7 % (0.0-1.0); %Eosinophils 5.1 % (0.0-10.0); %Lymphocytes 28.8 % (21.0-51.0); %Monocytes 12.1 % (0.0-10.0); %Neutrophils 53.3 % (42.0-75.0); Mean Corpuscular HGB CONC 33.5 g/dL (32.0-36.0); Mean Corpuscular Hemoglobin 32.6 pg (27.0-31.0); Mean Corpuscular Volume 97.2 fL (78.0-98.0); Mean Platelet Volume 7.2 fL (7.4-10.4); Platelet Count 279 thou/uL (130-400); RBC Distribution Width 12.1 % (11.5-14.5); Red Blood Cell (RBC) Count 4.61 mill/uL (4.70-6.10); White Blood Cell (WBC) Count 7.3 thou/uL (4.8-10.8)
[2021-12-20 16:00] LABS: INR-International Normal Ratio 0.9; Prothrombin Time 12.4 sec (12.0-14.7)
[2021-12-20 16:01] LABS: PTT 29.8 sec (22.9-36.1)
[2021-12-20 16:31] LABS: ALT (SGPT) 18 U/L (8-55); AST (SGOT) 17 U/L (5-34); Albumin 4.6 g/dL (3.4-4.8); Alkaline Phosphatase 70 U/L (40-110); Anion Gap 15 mmol/L (10-20); BUN (Urea Nitrogen) 17 mg/dL (8.4-25.7); Bilirubin, Total 0.6 mg/dL (0.2-1.2); Calc. Creatinine Clearance 0 mL/min (70-130); Calcium 9.6 mg/dL (7.8-10.44); Carbon Dioxide 25 mmol/L (23-31); Chloride 103 mmol/L (98-107); Globulin 3.6 g/dL (2.4-3.5); Glucose 199 mg/dL (80-115); Potassium 4.2 mmol/L (3.5-5.1); Protein, Total 8.2 g/dL (5.8-8.1); Sodium 139 mmol/L (136-145)
== END 2021-12-20 18:55 | disposition home or self-care (01) ==
LOC: ERS 12:26
DX: N32.89 Other specified disorders of bladder (principal); R31.9 Hematuria, unspecified; E78.5 Hyperlipidemia, unspecified; E78.00 Pure hypercholesterolemia, unspecified; I25.10 Atherosclerotic heart disease of native coronary artery without angina pectoris; I10 Essential (primary) hypertension; Z95.5 Presence of coronary angioplasty implant and graft; Z79.84 Long term (current) use of oral hypoglycemic drugs
CPT/HCPCS: 36415; 74177; 80053; 81003; 81015; 85025; 85610; 85730; Q9967

== ENCOUNTER 2022-05-20 11:08 | Observation (INO) | payer BC ==
[2022-05-20] MEDS ORDERED: Nitroglycerin 0.4 MG TAB 1 EACH ONE (11:29)
[2022-05-20] MEDS ORDERED: Aspirin Chewable 81 MG TAB ONE (11:29)
[2022-05-20 11:46] LABS: #Eosinphils 0.4 thou/uL (0.0-0.7); #Lymphocytes 1.9 thou/uL (1.20-3.40); #Monocytes 0.9 thou/uL (0.11-0.59); #Neutrophils 5.9 thou/uL (1.40-6.50); %Basophils 0.4 % (0.0-1.0); %Eosinophils 4.3 % (0.0-10.0); %Lymphocytes 20.6 % (21.0-51.0); %Monocytes 9.8 % (0.0-10.0); %Neutrophils 64.9 % (42.0-75.0); Hemoglobin 16.7 g/dL (14.0-18.0); Mean Corpuscular HGB CONC 34.4 g/dL (32.0-36.0); Mean Corpuscular Hemoglobin 33.8 pg (27.0-31.0); Mean Corpuscular Volume 98.2 fL (78.0-98.0); Mean Platelet Volume 7.6 fL (7.4-10.4); Platelet Count 255 thou/uL (130-400); Red Blood Cell (RBC) Count 4.95 mill/uL (4.70-6.10); White Blood Cell (WBC) Count 9.1 thou/uL (4.8-10.8)
[2022-05-20 12:23] LABS: ALT (SGPT) 23 U/L (8-55); AST (SGOT) 21 U/L (5-34); Albumin 4.7 g/dL (3.4-4.8); Alkaline Phosphatase 53 U/L (40-110); Anion Gap 18 mmol/L (10-20); BUN (Urea Nitrogen) 17 mg/dL (8.4-25.7); Bilirubin, Total 1.1 mg/dL (0.2-1.2); Calc. Creatinine Clearance 0 mL/min (70-130); Calcium 10.4 mg/dL (7.8-10.44); Carbon Dioxide 22 mmol/L (23-31); Chloride 103 mmol/L (98-107); Estimated GFR 50; Globulin 3.4 g/dL (2.4-3.5); Glucose 113 mg/dL (80-115); Potassium 4.1 mmol/L (3.5-5.1); Protein, Total 8.1 g/dL (5.8-8.1); Sodium 139 mmol/L (136-145)
[2022-05-20] MEDS ORDERED: Acetaminophen 650 MG Suppository PR PRN (15:54)
[2022-05-20] MEDS ORDERED: Ondansetron PF 4 MG/2 ML Vial IVP PRN (15:54)
[2022-05-20] MEDS ORDERED: Ondansetron ODT 4 MG TAB PO PRN (15:54)
[2022-05-20] MEDS ORDERED: Acetaminophen 325 MG TAB PO PRN (15:54)
[2022-05-20] MEDS ORDERED: Nitroglycerin 0.4 MG TAB (25 Tab Bottle) SL PRN (16:07)
[2022-05-20 17:31] VITALS: BMI 29.0
[2022-05-20 18:06] LABS: Troponin I Less than 0.010 ng/mL (< 0.028)
[2022-05-20] MEDS ORDERED: Simvastatin 10 MG TAB PO SCH (21:00)
[2022-05-21 03:05] VITALS: TEMP 97.8
[2022-05-21 05:14] LABS: #Basophils 0.1 thou/uL (0.0-0.2); #Eosinphils 0.4 thou/uL (0.0-0.7); #Lymphocytes 2.1 thou/uL (1.20-3.40); #Monocytes 0.9 thou/uL (0.11-0.59); #Neutrophils 5.1 thou/uL (1.40-6.50); %Basophils 0.6 % (0.0-1.0); %Eosinophils 5.1 % (0.0-10.0); %Lymphocytes 24.4 % (21.0-51.0); %Monocytes 10.3 % (0.0-10.0); %Neutrophils 59.5 % (42.0-75.0); Mean Corpuscular HGB CONC 33.7 g/dL (32.0-36.0); Mean Corpuscular Hemoglobin 33.4 pg (27.0-31.0); Mean Corpuscular Volume 99.1 fL (78.0-98.0); Mean Platelet Volume 7.5 fL (7.4-10.4); Platelet Count 234 thou/uL (130-400); White Blood Cell (WBC) Count 8.5 thou/uL (4.8-10.8)
[2022-05-21 05:33] LABS: Anion Gap 13 mmol/L (10-20); BUN (Urea Nitrogen) 19 mg/dL (8.4-25.7); Calc. Creatinine Clearance 73 mL/min (70-130); Calcium 9.2 mg/dL (7.8-10.44); Carbon Dioxide 23 mmol/L (23-31); Cardiac Risk 3.6 (Less than 4.5); Chloride 106 mmol/L (98-107); Cholesterol 159 mg/dl (< 200 Desired); Estimated GFR 68; Glucose 147 mg/dL (80-115); HDL Cholesterol 44 mg/dL (>60 Neg Risk); LDL Cholesterol, Calculated 88 mg/dL; Potassium 4.3 mmol/L (3.5-5.1); Sodium 138 mmol/L (136-145); Triglycerides 136 mg/dL (Less than 150)
[2022-05-21] MEDS ORDERED: Aspirin 81 mg Enteric Coated Tablet PO SCH (09:00)
[2022-05-21] MEDS ORDERED: Clopidogrel Bisulfate 75 MG TAB PO SCH (09:00)
[2022-05-21] MEDS ORDERED: ADENOSINE 60 MG/20 ML VIAL ONE (10:37)
[2022-05-21 12:13] VITALS: BP 132/63
== END 2022-05-21 13:41 | disposition home or self-care (01) ==
LOC: ERS 11:08 → ERHOLD 14:36 → 2SW 17:09
PROVIDERS: ADMIT Family Medicine; ATTEND Family Medicine
DX: R07.2 Precordial pain (principal); I25.10 Atherosclerotic heart disease of native coronary artery without angina pectoris; N17.9 Acute kidney failure, unspecified; I10 Essential (primary) hypertension; E11.9 Type 2 diabetes mellitus without complications; E78.00 Pure hypercholesterolemia, unspecified; I25.2 Old myocardial infarction; Z79.02 Long term (current) use of antithrombotics/antiplatelets; Z79.82 Long term (current) use of aspirin; Z79.84 Long term (current) use of oral hypoglycemic drugs; Z79.899 Other long term (current) drug therapy; Z88.5 Allergy status to narcotic agent; Z95.1 Presence of aortocoronary bypass graft; Z95.5 Presence of coronary angioplasty implant and graft; Z20.822 Contact with and (suspected) exposure to COVID-19
CPT/HCPCS: 36415; 71045; 78452; 80048; 80053; 80061; 84484; 85025; 93005; 93017; 94760; A9500; G0378; J0153; U0003; U0005

== ENCOUNTER 2022-09-01 14:46 | Emergency (ER) | payer OTHER, BC ==
[2022-09-01] MEDS ORDERED: Lidocaine 1% (PF) 30 ML VIAL ONE (16:15)
[2022-09-01] MEDS ORDERED: Boostrix 0.5 ML (Tdap) VIAL (>/=7 yrs of age) ONE (16:23)
== END 2022-09-01 17:27 | disposition home or self-care (01) ==
LOC: ERS 14:46
DX: S61.412A Laceration without foreign body of left hand, initial encounter (principal); I10 Essential (primary) hypertension; E78.00 Pure hypercholesterolemia, unspecified; I25.10 Atherosclerotic heart disease of native coronary artery without angina pectoris; W26.0XXA Contact with knife, initial encounter; Y99.0 Civilian activity done for income or pay; Z23 Encounter for immunization
CPT/HCPCS: 12001; 90471; 90715; J2001

== ENCOUNTER 2022-09-11 09:07 | Emergency (ER) | payer BC ==
[2022-09-11] MEDS ORDERED: Bacitracin 1 PK ONE (10:37)
== END 2022-09-11 10:42 | disposition home or self-care (01) ==
LOC: ERS 09:07
DX: S61.412D Laceration without foreign body of left hand, subsequent encounter (principal); E78.00 Pure hypercholesterolemia, unspecified; I25.10 Atherosclerotic heart disease of native coronary artery without angina pectoris; I10 Essential (primary) hypertension; X58.XXXD Exposure to other specified factors, subsequent encounter; Z79.82 Long term (current) use of aspirin; Z79.899 Other long term (current) drug therapy

== ENCOUNTER 2022-12-12 09:25 | Outpatient (CLI) | payer BC | END 2022-12-12 09:26 | disposition home or self-care (01) | LOC: ULT 09:25 | PROVIDERS: ATTEND Orthopaedic Surgery | DX: M79.605 Pain in left leg (principal) ==

== ENCOUNTER 2023-08-07 09:25 | Emergency (ER) | payer OTHER, SELFPAY ==
[2023-08-07] MEDS ORDERED: Acetaminophen 500 MG TAB ONE ×2 (11:02→11:07)
[2023-08-07] MEDS ORDERED: Lidocaine 4% Patch TD SCH (12:00)
[2023-08-07] MEDS ORDERED: Methocarbamol 500 MG TAB PO SCH (12:00)
[2023-08-07] MEDS ORDERED: LIDOCAINE Patch Removal TOP SCH (23:59)
== END 2023-08-07 12:30 | disposition home or self-care (01) ==
LOC: ERS 09:25
DX: S06.0X0A Concussion without loss of consciousness, initial encounter (principal); R29.700 NIHSS score 0; I10 Essential (primary) hypertension; I25.10 Atherosclerotic heart disease of native coronary artery without angina pectoris; W22.8XXA Striking against or struck by other objects, initial encounter; Y92.69 Other specified industrial and construction area as the place of occurrence of the external cause; Z95.5 Presence of coronary angioplasty implant and graft
CPT/HCPCS: 70450; 72125

== ENCOUNTER 2024-03-19 10:53 | Inpatient (IN) | payer MEDICARE, OTHER ==
[2024-03-19] MEDS ORDERED: Iopamidol-370 76% 500 ML MDV (1 ML CHARGE) ONE (11:02)
[2024-03-19] MEDS ORDERED: Ondansetron PF 4 MG/2 ML Vial ONE (12:09)
[2024-03-19 12:25] LABS: #Basophils Less than 0.03 10x3/uL (0.0-0.2); %Basophils 0.3 % (0.0-1.0); %Eosinophils 2.7 % (0.0-10.0); %Lymphocytes 12.6 % (21.0-51.0); Hematocrit 39.5 % (42.0-52.0); Hemoglobin 13.1 g/dL (14.0-18.0); Mean Corpuscular HGB CONC 33.2 g/dL (32.0-36.0); Mean Corpuscular Hemoglobin 33.1 pg (27.0-31.0); Mean Corpuscular Volume 99.7 fL (78.0-98.0); Mean Platelet Volume 10.3 fL (7.4-10.4); Platelet Count 198 10x3/uL (130-400); RBC Distribution Width 13.6 % (11.5-14.5); Red Blood Cell (RBC) Count 3.96 mill/uL (4.70-6.10)
[2024-03-19 12:41] LABS: ALT (SGPT) 16 U/L (8-55); AST (SGOT) 25 U/L (5-34); Albumin 3.8 g/dL (3.4-4.8); Alkaline Phosphatase 38 U/L (40-110); Anion Gap 15 mmol/L (10-20); BUN (Urea Nitrogen) 17 mg/dL (8.4-25.7); Bilirubin, Total 0.8 mg/dL (0.2-1.2); Calc. Creatinine Clearance 0 mL/min (70-130); Calcium 9.3 mg/dL (7.8-10.44); Carbon Dioxide 20 mmol/L (23-31); Chloride 109 mmol/L (98-107); Estimated GFR 61; Glucose 73 mg/dL (80-115); Potassium 4.7 mmol/L (3.5-5.1); Protein, Total 6.8 g/dL (5.8-8.1); Sodium 139 mmol/L (136-145)
[2024-03-19 12:42] LABS: Prothrombin Time 12.9 sec (12.0-14.7)
[2024-03-19 12:43] LABS: PTT 25.5 sec (22.9-36.1)
[2024-03-19 12:44] LABS: Troponin I Less than 0.010 ng/mL (< 0.028)
[2024-03-19] MEDS ORDERED: Ondansetron ODT 4 MG TAB PO PRN (16:07)
[2024-03-19] MEDS ORDERED: Dextrose 50% Abboject 50 ML SYRINGE SLOW IVP PRN (16:07)
[2024-03-19] MEDS ORDERED: Calcium Carbonate 500 MG ChewTAB PO PRN (16:07)
[2024-03-19] MEDS ORDERED: Senokot S 8.6-50 MG TAB PO PRN (16:07)
[2024-03-19] MEDS ORDERED: Acetaminophen 650 MG Suppository PR PRN (16:07)
[2024-03-19] MEDS ORDERED: Lorazepam 2 MG/ML VIAL SLOW IVP PRN (16:07)
[2024-03-19] MEDS ORDERED: Dextrose 5% in Water 1,000 ML IV PRN (16:07)
[2024-03-19] MEDS ORDERED: HumaLOG 300 UNITS/3 ML VIAL SC PRN (16:07)
[2024-03-19] MEDS ORDERED: Glucagon 1 MG/ML KIT IM PRN (16:07)
[2024-03-19] MEDS ORDERED: Ondansetron PF 4 MG/2 ML Vial IVP PRN (16:07)
[2024-03-19 16:33] LABS: Lactic Acid 1.6 mmol/L (0.5-2.2)
[2024-03-19 16:45] LABS: Troponin I 0.017 ng/mL (< 0.028)
[2024-03-19] MEDS: Ranolazine ER 500 MG TAB PO SCH (17:45)
[2024-03-19] MEDS: Sodium Chloride 0.9% 1,000 ML IV SCH (17:47)
[2024-03-19] MEDS: Acetaminophen 325 MG TAB PO PRN (18:15)
[2024-03-19 18:40] VITALS: BMI 29.0
[2024-03-19] MEDS: Montelukast Sodium 10 mg Tablet PO SCH (20:27)
[2024-03-19] MEDS: Chlorhexidine Gluconate 15 ML UDCUP SSP SCH (20:27)
[2024-03-19] MEDS: Famotidine 20 MG TAB PO SCH (20:27)
[2024-03-19] MEDS: traMADol HCl 50 MG TAB PO SCH (20:59)
[2024-03-20 04:24] LABS: #Basophils 0.03 10x3/uL (0.0-0.2); %Basophils 0.5 % (0.0-1.0); %Eosinophils 2.9 % (0.0-10.0); %Lymphocytes 18.3 % (21.0-51.0); Hematocrit 36.3 % (42.0-52.0); Hemoglobin 12.1 g/dL (14.0-18.0); Mean Corpuscular HGB CONC 33.3 g/dL (32.0-36.0); Mean Corpuscular Hemoglobin 33.7 pg (27.0-31.0); Mean Corpuscular Volume 101.1 fL (78.0-98.0); Mean Platelet Volume 10.1 fL (7.4-10.4); Platelet Count 169 10x3/uL (130-400); RBC Distribution Width 14.1 % (11.5-14.5); Red Blood Cell (RBC) Count 3.59 mill/uL (4.70-6.10)
[2024-03-20 05:24] LABS: ALT (SGPT) 14 U/L (8-55); AST (SGOT) 20 U/L (5-34); Albumin 3.4 g/dL (3.4-4.8); Alkaline Phosphatase 32 U/L (40-110); Anion Gap 11 mmol/L (10-20); BUN (Urea Nitrogen) 13 mg/dL (8.4-25.7); Bilirubin, Total 0.8 mg/dL (0.2-1.2); Calc. Creatinine Clearance 69 mL/min (70-130); Calcium 8.5 mg/dL (7.8-10.44); Carbon Dioxide 22 mmol/L (23-31); Chloride 110 mmol/L (98-107); Estimated GFR 65; Globulin 2.7 g/dL (2.4-3.5); Glucose 86 mg/dL (80-115); Potassium 3.7 mmol/L (3.5-5.1); Protein, Total 6.1 g/dL (5.8-8.1); Sodium 139 mmol/L (136-145)
[2024-03-20] MEDS: HumaLOG 300 UNITS/3 ML VIAL SC PRN (09:55)
[2024-03-20] MEDS: Aspirin 81 mg Enteric Coated Tablet PO SCH (09:57)
[2024-03-20] MEDS: Rosuvastatin 20 MG TAB PO SCH (09:57)
[2024-03-20] MEDS: Clopidogrel Bisulfate 75 MG TAB PO SCH (09:57)
[2024-03-20] MEDS: Ketorolac Tromethamine 30 MG (1 mL) VIAL IVP SCH (13:46)
[2024-03-20] MEDS: levETIRAcetam 500 MG TAB PO SCH ×2 (13:47→20:17)
[2024-03-20] MEDS: Prochlorperazine Edisylate 10 MG in Sodium Chloride 0.9% 50 ML IVPB SCH (13:51)
[2024-03-20] MEDS: Pantoprazole DR 40 MG TAB PO SCH (13:51)
[2024-03-20] MEDS ORDERED: Fioricet 325/50/40 mg Tablet PO PRN (18:12)
[2024-03-20] MEDS ORDERED: Ketorolac Tromethamine 30 MG (1 mL) VIAL IVP PRN (18:12)
[2024-03-20] MEDS ORDERED: Baclofen 10 MG TAB PO SCH (21:00)
[2024-03-21] MEDS: Pantoprazole DR 40 MG TAB PO SCH (10:06)
[2024-03-21 17:40] VITALS: BP 147/76; TEMP 98.4
== END 2024-03-21 18:19 | disposition home or self-care (01) | DRG 312 ==
LOC: ERS 10:53 → 2SE 17:15
PROVIDERS: ADMIT Internal Medicine; ATTEND Hospitalist
PROC: 4A00X4Z Measurement of Central Nervous Electrical Activity, External Approach (ICD-10-PCS; principal; 2024-03-20)
DX: I95.1 Orthostatic hypotension (principal); E87.20 Acidosis, unspecified; I10 Essential (primary) hypertension; E78.5 Hyperlipidemia, unspecified; I25.10 Atherosclerotic heart disease of native coronary artery without angina pectoris; E11.9 Type 2 diabetes mellitus without complications; F32.9 Major depressive disorder, single episode, unspecified; D53.9 Nutritional anemia, unspecified; Z79.82 Long term (current) use of aspirin; Z79.899 Other long term (current) drug therapy; Z95.9 Presence of cardiac and vascular implant and graft, unspecified; Z95.1 Presence of aortocoronary bypass graft; Z79.84 Long term (current) use of oral hypoglycemic drugs
CPT/HCPCS: 36415; 36416; 70450; 70553; 71045; 71275; 72125; 80053; 83605; 83735; 83880; 84146; 84443; 84484; 85025; 85610; 85730; 87040; 93005; 93306; 95700; 95711; 95819; 96361; 96374; J0780; J1815; J1885; J2405; J7050; Q9967